=== PATIENT | male | born 1965 | race Caucasian/White ===

== ENCOUNTER 2024-05-17 09:49 | Emergency (ER) | payer OTHER, SELFPAY ==
--- NOTE | ~2024-05-17 | XR_ITS ---
EXAMINATION: XR shoulder RT min 2V DATE: 05/17/2024 10:35 INDICATION: Right shoulder pain. Fall. TECHNIQUE: 4 views of right shoulder were obtained. COMPARISON: None. FINDINGS: Alignment is normal. No fracture. There is severe osteoarthritis of acromioclavicular joint and mild osteoarthritis of glenohumeral joint. IMPRESSION: 1. Polyarticular osteoarthritis. Reviewed, dictated and finalized at location A. ENTER'S HELPER
[2024-05-17 09:58] VITALS: BP 138/93; PULSE 71; RESP 16; TEMP 36.6; O2SAT 100
--- NOTE | 2024-05-17 10:16 | ED_ITS ---
HPI - Fall General Chief Complaint: Fall Stated Complaint: FALL Time Seen by Provider: 05/17/24 10:16 Source: patient, RN notes reviewed and old records reviewed Mode of arrival: ambulatory Limitations: no limitations History of Present Illness HPI Narrative: 58-year-old male presents to the [facility] with complaints right shoulder pain after he slipped on ice and fell yesterday about 6:00 p.m.. Reports decreased range of motion, tenderness to the anterior portion of the right shoulder. Did not hit head. No loss of consciousness. No midline tenderness. Has full range of motion of the elbow and the wrist. 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 Had taken his 's leftover hydrocodone as well as 1 ibuprofen Onset (ago): day(s) (1) Related Data Home Medications ?Medication ?Instructions ?Recorded ?Confirmed ?Last Taken ?Type allopurinol 100 mg tablet mg 05/17/24 Unknown History lisinopril 5 mg tablet mg 05/17/24 Unknown History rosuvastatin 10 mg tablet mg 05/17/24 Unknown History Allergies Allergy/AdvReac Type Severity Reaction Status Date / Time aspirin Allergy Unknown Other Verified 05/17/24 10:04 Review of Systems Review of Systems: All systems reviewed & are unremarkable except as noted in HPI and below Constitutional: Constitutional: Reports no additional constitutional complaints ENT: Reports system reviewed and no additional complaints, except as documented Cardiovascular: Cardiovascular: Reports no additional cardiovascular complaints, Denies chest pain and Denies dyspnea Respiratory: Respiratory: Reports no additional respiratory complaints, Denies chest congestion, Denies cough and Denies dyspnea Musculoskeletal: Musculoskeletal: Reports as per HPI and Reports arthralgias (Right shoulder) Integumentary/Breasts: Skin/Breast: Reports system reviewed and no additional complaints, except as docu PMFSH Comments At the time of my signature, I reviewed and agree with the nursing past medical, surgical, social, and family history. There is no relevant family history pertinent to the patient complaint. Exam Const: General: cooperative, healthy appearing, comfortable, no acute distress, well developed, alert and well nourished Nutritional Appearance: well nourished Orientation/consciousness: patient oriented x3 Limitations: no limitations HENMT: Head: normal to inspection Eyes: General: appearance normal, both eyes and all related structures Alignment and Position: alignment normal Neck: Neck: normal visual inspection, full ROM, no lymphadenopathy and no meningeal signs Chest: Chest palpation & inspection: normal inspection of the chest Resp: Effort & Inspection: normal respiratory effort and able to speak in complete sentences Auscultation: clear to auscultation bilaterally, no crackles, no rales, no rhonchi and no wheezes Cardio: Rate: regular rate Back/Spine/Pelvis: Back: no CVA tenderness and No back tenderness Cervical Spine: normal cervical lordosis and No Cervical spine tenderness Thoracic/Lumbar Spine: No thoracic spinal tenderness and No lumbar spinal tenderness Skin: General skin exam: normal color and no rashes or lesions noted Neuro: General: patient oriented x3, gait normal, moves all extremities and no meningeal signs Cognition (Neuro): normal cognition Speech: normal speech Gait exam (Neuro): Normal gait present Extrem: General: normal to inspection, full ROM, capillary refill normal and normal gait Right upper extremity: shoulder/upper arm tenderness (Anterior AC joint) and abnormal ROM pain with active ROM (Above 90? lateral and anterior) in extension; no swelling, elbow/forearm normal to inspection, wrist normal to inspection and Extremity exam: right hand normal to inspection and neuromotor exam normal wrist extension normal, thumb opposition normal, thumb IP flexion normal, thumb ADduction normal and fingers 2-5 ABduction normal Psych: Appearance: grossly normal and well kempt Mental Status: mental status grossly normal Speech and movement: Normal speech and movement present and Clear speech present Affect: normal affect Attitude: cooperative Course Course Level of Care: Express Care Visit Vital Signs Vital signs: Vital Signs Temperature 97.9 F 05/17/24 09:58 Pulse Rate 71 05/17/24 09:58 Respiratory Rate 16 05/17/24 09:58 Blood Pressure 138/93 H 05/17/24 09:58 Pulse Oximetry 100 05/17/24 09:58 Oxygen Delivery Room Air 05/17/24 09:58 Temperature 97.9 F 05/17/24 09:58 Pulse Rate 71 05/17/24 09:58 Respiratory Rate 16 05/17/24 09:58 Blood Pressure 138/93 H 05/17/24 09:58 Pulse Oximetry 100 05/17/24 09:58 Oxygen Delivery Room Air 05/17/24 09:58 Reviewed MDM - Fall MDM Narrative Medical decision making narrative: Patient sitting comfortably in exam room. Stable. Patient distress. Patient presents with right shoulder pain post slip and fall. X-ray negative Patient appropriate for outpatient treatment with close follow-up Discharge instructions reviewed with patient, as well as provided in writing per nursing staff. The instructions also include specific and strict return/GO TO THE ER as well as f/u information. All questions have been answered, and the patient deny any further questions with discharge and discharge plan. Some parts of this dictation were generated by voice recognition software and may contain typographical and/or grammatical inaccuracies. Differential Diagnosis Differential diagnosis: Likely other (Shoulder fracture, humeral fracture, humeral sprain, contusion, ligament injury) Imaging Data Radiologist's impression: EXAMINATION: XR shoulder RT min 2V DATE: 05/17/2024 10:35 INDICATION: Right shoulder pain. Fall. TECHNIQUE: 4 views of right shoulder were obtained. COMPARISON: None. FINDINGS: Alignment is normal. No fracture. There is severe osteoarthritis of acromioclavicular joint and mild osteoarthritis of glenohumeral joint. IMPRESSION: 1. Polyarticular osteoarthritis. Critical Care Time Critical Care Time Critical Care Time: No Discharge Plan Discharge Clinical Impression: Polyarticular osteoarthritis Acute shoulder pain Qualifiers: Laterality: right Qualified Code(s): M25.511 - Pain in right shoulder Fall Qualifiers: Encounter type: initial encounter Qualified Code(s): W19.XXXA - Unspecified fall, initial encounter Patient Disposition: Home, Self-Care Condition: Stable Instructions: Antibiotic Form, Osteoarthritis (ED), Shoulder Pain (ED) Additional Instructions: Your Xray did not show a fracture. Ice should be applied to help reduce swelling. It can be used for 20 to 30 minutes, every 2-3 hours while awake. Do not apply ice directly to your skin. You can alternate ibuprofen 600mg and Tylenol 650mg every 4 hours as needed for pain Back open can help with the muscle discomfort. Do not drive or operate heavy machinery well taking this medication. Please schedule a follow-up visit with your personal physician for further evaluation and treatment within 2 weeks especially if symptoms persist. For new or worsening symptoms go directly to the emergency room Patient Language: Bulgarian Prescriptions: New ibuprofen 600 mg tablet 600 mg PO TID PRN (Reason: fever or pain) Qty: 30 0RF baclofen 10 mg tablet 10 mg PO TID PRN (Reason: muscle pain) Qty: 10 0RF No Action allopurinol 100 mg tablet lisinopril 5 mg tablet rosuvastatin 10 mg tablet Follow-up/Referrals: [facility] [Primary Care Provider] - 1 Week ([facility] follow-up) Stand Alone Forms: Work/School Release IP Time of Disposition: 10:53
== END 2024-05-17 10:58 | disposition home or self-care (01) ==
PROVIDERS: Emergency Provider Nurse Practitioner
DX: M19.011 Primary osteoarthritis, right shoulder (principal); M25.511 Pain in right shoulder; W00.0XXA Fall on same level due to ice and snow, initial encounter; I10 Essential (primary) hypertension; E78.00 Pure hypercholesterolemia, unspecified; M10.9 Gout, unspecified
CPT/HCPCS: 73030; 99203; G0463

== ENCOUNTER 2024-07-10 08:00 | Outpatient (RCR) | payer OTHER, SELFPAY ==
[2024-06-15 08:05] VITALS: BP_SYST 155
--- NOTE | 2024-06-15 09:05 | OPREHPOC ---
Outpatient Therapy Plan of Care This is a Multidisciplinary Plan of Care that may contain components documented by all disciplines (PT, OT, and ST.) PT Problem 1 PT Problem #1 Knowledge Deficit PT Goal 1 Goal / Goal Update *[place] with HEP Target Visit 8 PT Problem 2 PT Problem #2 Pain PT Goal 1 Goal / Goal Update *decrease pain rating to 3/10 at worst, to increase use of dominant UE Target Visit 8 PT Problem 3 PT Problem #3 Impaired Strength PT Goal 1 Goal / Goal Update *increase strength of R shoulder, to improve use of R arm for reaching and home and self care tasks : in standing: R active x 5 reps: 1* flexion to 145' 2* abduction to 145' no pain increase with 3* shoulder flexion to 145' 4* abduction to 145' Target Visit 8
--- NOTE | 2024-06-15 09:05 | PTOPEVAL1 ---
Assessment and note entered by Carolina Littlejohn, PT Evaluation Information Assessment Status Evaluation ICD-10 Condition Codes (PT) Pain in right shoulder M25.511 Onset 05-16-24 Subjective Information fell on ice 05-16-24: went to urgent care next day, x ray negative for fracture pain onset, problems reaching out and overhead going to see ortho specialist this afternoon, [facility] R hand dominant; is currently doing full work duties have always done physical work- some R elbow, wrist,hand pain from repetitive jobs work: [employer]- lifting under 50#- able to adjust machines to lift at waist height; prior to fall, active and no limitations in activity, no pain in R shoulder Reported Pain Level Pain Score Self Report Additional Pain Score Comments pain range in the past week: 1-10/16; pops, crunches in joint, ache, sore; top GH joint and medial humerus; pain is less than initially after falling increase pain: lie on R side, reach up decrease pain: not use arm, naproxen 2x/day, rub shoulder with sleeping: pain with lying on R side, awaken from sleep 2x/night due to pain not using heat, ice- instruct on PRN use Assessment PT Clinical Summary Vega has the diagnosis of R shoulder pain, s/p fall and landing on his R shoulder on ice. Self assessment with Quick DASH rating of 32% limitation in activity level. He is R hand dominant and is continuing to work his full work duties. With the evaluation: decreased active ROM of R shoulder flexion and abduction motions, with weakness all motions; rounded shoulder posture and tenderness over anterior and lateral shoulder. Skilled PT services are indicated for treatment of R shoulder impingement: modalities to decrease pain, therapeutic exercises to improve posture and position of GH joint and shoulder-scapular strength, with education for HEP and posture/body mechanics. Plan of Care Interventions Electrical Stimulation,Hot Pack/Cold Pack,Manual Therapy,Neuro Re-education,Patient/Caregiver Education,Therapeutic Activities,Therapeutic Exercise,Ultrasound,Other Other Interventions taping PT Services Indicated Yes Treatment Frequency and 1-2x/wk for 8 visits Duration These treatments will address the objective and functional deficits as defined above. The patient will be advanced safely and appropriately in order for the patient to progress towards his/her prior level of function. Additional exercises will be introduced and as well as a comprehensive home exercise program upon discharge, if needed, ?to ensure carryover of functional gains achieved in the clinic. This treatment plan has been reviewed and agreement upon by the patient.
[2024-07-10 08:00] VITALS: BP_SYST 140
--- NOTE | 2024-07-10 08:41 | PTOPDC ---
Assessment and note entered by Carolina Littlejohn, PT Assessment Status Discharge ICD-10 Condition Codes (PT) Pain in right shoulder M25.511 Onset 05-16-24 Subjective Information going to have surgery on shoulder 07-16-24; have been trying to rest my shoulder and not use my R arm. Reported Pain Level Pain Score Self Report Additional Pain Score Comments pain range to 1-7/10; ache and sharp pain at times increase pain: use of R arm, push hand down into front pants pocket; decrease pain: rest, over the counter meds; have home stim unit, not used yet Assessment PT Clinical Summary Vega has received 8 PT sessions. With today's reassessment: pain range of 1-7/10; self assessment with Quick DASH rating of 39%; Education completed for HEP. ROM of R shoulder: active/passive: flexion 95'/ 150'; abduction 110'/ 140'; IR- reach behind back, fingers to distal scapula; ER- reach to back of head, fingers to cervical spine. Most pain increase with flexion. The goals were partially met. Discharge PT. He is scheduled to have surgery next week. Plan of Care PT Services Indicated No
== END 2024-07-10 11:02 | disposition home or self-care (01) ==
LOC: ANHPT 08:00
PROVIDERS: PCP Physician Assistant; Visit Provider Physician Assistant
DX: M25.511 Pain in right shoulder (principal)
CPT/HCPCS: 97014; 97110; 97140; 97161; 97530; G0283

== ENCOUNTER 2024-07-10 09:05 | Outpatient (CLI) | payer OTHER, SELFPAY ==
[2024-07-10 11:01] LABS: Basophils Absolute Auto 0.1 K/mm3 (0.0-0.1); Basophils Percent Auto 1.2 % (0.2-1.2); Eosinophils Absolute Auto 0.5 K/mm3 (0-0.3); Eosinophils Percent Auto 5.6 % (0-4.4); Hematocrit 44.1 % (42.0-52.0); Immature Granulocyte Absolute 0.02 K/mm3 (0.00-0.031); Immature Granulocyte Percent A 0.2 % (0-0.5); Lymphocytes Absolute Auto 2.53 K/mm3 (0.9-3.2); Lymphocytes Percent Auto 31.4 % (18.3-44.2); Mean Corpuscular Hemoglobin 31.3 pg (26-34); Mean Corpuscular Volume 92.1 fl (80-100); Mean Platelet Volume 10.1 fl (7.4-10.4); Monocytes Absolute Auto 0.5 K/mm3 (0.1-0.6); Monocytes Percent Auto 5.6 % (2.6-8.5); Neutrophils Absolute Auto 4.5 K/mm3 (1.3-6.7); Platelet Count Result 227 k/mm3 (150-375); Red Blood Count 4.79 M/mm3 (4.6-6.20); Red Cell Distribution Width 12.8 % (11.5-14.5); White Blood Count 8.1 K/mm3 (4.5-10.0)
[2024-07-10 11:27] LABS: Alanine Aminotransferase 30 U/L (6-50); Albumin Level 4.9 g/dL (3.5-5.1); Alkaline Phosphatase 43 U/L (38-126); Anion Gap 14 mmol/L (4-12); Aspartate Amino Transferase 33 U/L (17-59); Bilirubin,Total 0.8 mg/dL (0.2-1.3); Blood Urea Nitrogen 19 mg/dL (9-20); Carbon Dioxide 25 mmol/L (22-30); Chloride 101 mmol/L (98-107); Estimated Glomerular Filt Rate > 60; Glucose 106 mg/dL (65-110); Potassium 4.4 mmol/L (3.4-5.0); Sodium 140 mmol/L (137-145)
== END 2024-07-10 09:06 | disposition home or self-care (01) ==
PROVIDERS: PCP Physician Assistant; Visit Provider Physician Assistant
DX: Z01.818 Encounter for other preprocedural examination (principal)
CPT/HCPCS: 36415; 80053; 85025; 93005

== ENCOUNTER 2024-11-12 10:00 | Outpatient (RCR) | payer OTHER, SELFPAY ==
--- NOTE | 2024-08-16 12:59 | OPREHPOC ---
Outpatient Therapy Plan of Care This is a Multidisciplinary Plan of Care that may contain components documented by all disciplines (PT, OT, and ST.) PT Problem 1 PT Problem #1 Knowledge Deficit PT Goal 1 Goal / Goal Update [place] with HEP Target Visit 4 PT Goal 2 Goal / Goal Update 1. Report no pain greater than 2/10 for 2 consecutive weeks 2. Discharge use of sling 3. Progress to shoulder strengthening per protocol Target Visit 4 PT Problem 2 PT Problem #2 Impaired Range of Motion PT Goal 1 Goal / Goal Update 1. Improve R shoulder flexion ROM to 170 degrees passively 2. Improve R shoulder external rotation ROM to 85 degrees passively 3. Improve R shoulder abduction to 90 to achieve proper functional rotation testing of internal and external rotation Target Visit 10 PT Problem 3 PT Problem #3 Impaired Strength PT Goal 1 Goal / Goal Update 1. Improve R shoulder external rotation strength to 4+/5 to improve shoulder stabilization 2. Improve R shoulder flexion strength to 4+/5 to improve active reaching and object Target Visit 10
--- NOTE | 2024-08-16 12:59 | PTOPEVAL1 ---
Assessment and note entered by Americo Tim, PT Evaluation Information Assessment Status Evaluation Diagnosis Post operative R shoulder rotator cuff repair ICD-10 Condition Codes (PT) Pain in right shoulder M25.511 Onset 07/09/24 Subjective Information Reports that he ahs been losing some sleep the last couple of weeks. He has been sleeping in the bed propped up with pillows. Reports that he still is around a 3 in pain at rest. Currently taking Oxycodone for pain regimented at 5-6 per day. Reports that he has been doing some elbow and wrist motion and occasional pendulums. Denies any radicular symptoms. Mostly has a dull ache into shoulder. Reported Pain Level Pain Score 3: Self Report Assessment PT Clinical Summary Patient presents with signs and symptoms consistent with post operative rotator cuff. Demonstrates a lot of ROM loss and guarding this date. Patient will benefit form skilled therapy as we progress through protocol for cheondoism of shoulder motion, strength, and functional capacity . ROM needs to be early focus. Plan of Care Interventions Electrical Stimulation,Hot Pack/Cold Pack,Manual Therapy,Neuro Re-education,Therapeutic Activities, Therapeutic Exercise PT Services Indicated Yes Treatment Frequency and 2x/week for 10 visits Duration These treatments will address the objective and functional deficits as defined above. The patient will be advanced safely and appropriately in order for the patient to progress towards his/her prior level of function. Additional exercises will be introduced and as well as a comprehensive home exercise program upon discharge, if needed, ?to ensure carryover of functional gains achieved in the clinic. This treatment plan has been reviewed and agreement upon by the patient.
--- NOTE | 2024-08-21 10:33 | PCPTNOTE ---
Request protocol clarification from PT. ESTRELLA
--- NOTE | 2024-08-21 13:27 | PCPTNOTE ---
Left mssg with MD office 13:20 requesting RTC Repair protocol for Vega Romero. AKS
--- NOTE | 2024-08-30 15:16 | PCPTNOTE ---
Left mssg with Dr. Angela azul Erica for a current RTC protocol. Currently in ing. week #8. AKS
--- NOTE | 2024-09-04 09:33 | PCPTNOTE ---
Spoke with Erica from MD office, requesting updated protocol. Pt is currently in week # 9. DELORES
--- NOTE | 2024-09-13 12:59 | OPREHPOC ---
Outpatient Therapy Plan of Care This is a Multidisciplinary Plan of Care that may contain components documented by all disciplines (PT, OT, and ST.) PT Problem 1 PT Problem #1 Knowledge Deficit PT Goal 1 Goal / Goal Update [place] with HEP Target Visit 4 Progress Met PT Goal 2 Goal / Goal Update 1. Report no pain greater than 2/10 for 2 consecutive weeks 2. Discharge use of sling 3. Progress to shoulder strengthening per protocol Target Visit 4 Progress Met PT Problem 2 PT Problem #2 Impaired Range of Motion PT Goal 1 Goal / Goal Update 1. Improve R shoulder flexion ROM to 170 degrees passively 2. Improve R shoulder external rotation ROM to 85 degrees passively 3. Improve R shoulder abduction to 90 to achieve proper functional rotation testing of internal and external rotation - Met 09/13/24: 1. Improved but lacking 2. Improved but lacking Target Visit 10 Progress Partially Met PT Problem 3 PT Problem #3 Impaired Strength PT Goal 1 Goal / Goal Update 1. Improve R shoulder external rotation strength to 4+/5 to improve shoulder stabilization 2. Improve R shoulder flexion strength to 4+/5 to improve active reaching and object 09/13/24: Strengthening has been initiated. Continues to lack sufficient strength for full active arc motion Target Visit 10 Progress Partially Met
--- NOTE | 2024-09-13 12:59 | PTOPPROG ---
Assessment and note entered by Americo Tim, PT Evaluation Information Assessment Status Progress Diagnosis Post operative R shoulder rotator cuff repair ICD-10 Condition Codes (PT) Pain in right shoulder M25.511 Onset 07/09/24 Subjective Information Reports that overall he feels he is doing well. Still feels tight and sore at times especially with wall walking and overhead activity. He purchased a randolph to work with at home and he has been using those consistently. Reports that overall he is sleeping well, but cannot lay on his sides. Understands that he needs to continue to work on shoulder motion. Assessment PT Clinical Summary Patient has made significant progress to this point in therapy. He continues to show stiffness in shoulder with lacking of full functional mobility. We have initiated strengthening and weakness of shoulder continues to be prevalent, however ROM still is needed as a continued forces to ensure care home functional recovery. Patient will continue to benefit from skilled therapy to address these deficits. Plan of Care Interventions Electrical Stimulation,Hot Pack/Cold Pack,Manual Therapy,Neuro Re-education,Therapeutic Activities, Therapeutic Exercise PT Services Indicated Yes Treatment Frequency and 2x/week for 8 visits Duration These treatments will address the objective and functional deficits as defined above. The patient will be advanced safely and appropriately in order for the patient to progress towards his/her prior level of function. Additional exercises will be introduced and as well as a comprehensive home exercise program upon discharge, if needed, ?to ensure carryover of functional gains achieved in the clinic. This treatment plan has been reviewed and agreement upon by the patient.
--- NOTE | 2024-10-15 12:42 | OPREHPOC ---
Outpatient Therapy Plan of Care This is a Multidisciplinary Plan of Care that may contain components documented by all disciplines (PT, OT, and ST.) PT Problem 1 PT Problem #1 Knowledge Deficit PT Goal 1 Goal / Goal Update [place] with HEP Target Visit 4 Progress Met PT Goal 2 Goal / Goal Update 1. Report no pain greater than 2/10 for 2 consecutive weeks 2. Discharge use of sling 3. Progress to shoulder strengthening per protocol Target Visit 4 Progress Met PT Problem 2 PT Problem #2 Impaired Range of Motion PT Goal 1 Goal / Goal Update 1. Improve R shoulder flexion ROM to 170 degrees passively 2. Improve R shoulder external rotation ROM to 85 degrees passively 3. Improve R shoulder abduction to 90 to achieve proper functional rotation testing of internal and external rotation - Met 09/13/24: 1. Improved but lacking 2. Improved but lacking Target Visit 10 Progress Met PT Problem 3 PT Problem #3 Impaired Strength PT Goal 1 Goal / Goal Update 1. Improve R shoulder external rotation strength to 4+/5 to improve shoulder stabilization 2. Improve R shoulder flexion strength to 4+/5 to improve active reaching and object 10/15/24: Showing improved strength but still lacking functional necessity Target Visit 26 Progress Partially Met
--- NOTE | 2024-10-15 12:42 | PTOPPROG ---
Assessment and note entered by Americo Tim, PT Evaluation Information Assessment Status Progress Diagnosis Post operative R shoulder rotator cuff repair ICD-10 Condition Codes (PT) Pain in right shoulder M25.511 Onset 07/09/24 Subjective Information Reports that overall pain is controlled and he is making progress. He is still having a lot of trouble with any overhead work at this time. He does not feel he has efficient strength to do all he needs to right now. Has just recently been pushing strengthening. Assessment PT Clinical Summary Patient has seen improvement in shoulder ROM to near full capacity compared to uninvolved. Patient continues to show consistent weakness with overhead activity and shoulder stabilization. Clicking noted with rotational activity indicating continued shoulder instability. Patient will continue to benefit from skilled therapy to improve gross shoulder strength and functional shoulder conditioning for work and self care activity. Plan of Care Interventions Electrical Stimulation,Hot Pack/Cold Pack,Manual Therapy,Neuro Re-education,Therapeutic Activities, Therapeutic Exercise PT Services Indicated Yes Treatment Frequency and 2x/week for 8 visits Duration These treatments will address the objective and functional deficits as defined above. The patient will be advanced safely and appropriately in order for the patient to progress towards his/her prior level of function. Additional exercises will be introduced and as well as a comprehensive home exercise program upon discharge, if needed, ?to ensure carryover of functional gains achieved in the clinic. This treatment plan has been reviewed and agreement upon by the patient.
--- NOTE | 2024-11-12 14:44 | OPREHPOC ---
Outpatient Therapy Plan of Care This is a Multidisciplinary Plan of Care that may contain components documented by all disciplines (PT, OT, and ST.) PT Problem 1 PT Problem #1 Knowledge Deficit PT Goal 1 Goal / Goal Update [place] with HEP Target Visit 4 Progress Met PT Goal 2 Goal / Goal Update 1. Report no pain greater than 2/10 for 2 consecutive weeks 2. Discharge use of sling 3. Progress to shoulder strengthening per protocol Target Visit 4 Progress Met PT Problem 2 PT Problem #2 Impaired Range of Motion PT Goal 1 Goal / Goal Update 1. Improve R shoulder flexion ROM to 170 degrees passively 2. Improve R shoulder external rotation ROM to 85 degrees passively 3. Improve R shoulder abduction to 90 to achieve proper functional rotation testing of internal and external rotation - Met 09/13/24: 1. Improved but lacking 2. Improved but lacking Target Visit 10 Progress Met PT Problem 3 PT Problem #3 Impaired Strength PT Goal 1 Goal / Goal Update 1. Improve R shoulder external rotation strength to 4+/5 to improve shoulder stabilization 2. Improve R shoulder flexion strength to 4+/5 to improve active reaching and object 11/12/24: Showing improved strength but still lacking functional necessity. Needs continued strengthening. Target Visit 34 Progress Partially Met
--- NOTE | 2024-11-12 14:44 | PTOPPROG ---
Assessment and note entered by Americo Tim, PT Evaluation Information Assessment Status Progress Diagnosis Post operative R shoulder rotator cuff repair ICD-10 Condition Codes (PT) Pain in right shoulder M25.511 Onset 07/09/24 Subjective Information States that motion is feeling much better. Still feels weak and unsure how he will do in a return to work situation. He follows up with MD on to discuss his pending 11/20/24 return to work date. Pain has been controlled with activity but he is still achy at rest and with repetitive activity. His biggest concern at this time would be with lifting objects from a low location because his machine is able to get to chest level when picking. Concerned about going back to work if he has no restrictions while he continues to recover at fear of reinjury. Assessment PT Clinical Summary Patient has shown improvement in ROM meeting likely maximal functional availability. He still shows weakness of the shoulder in shoulder level and above. I feel that he is able to do most things at chest level and below but he does not show ability to produce any significant lifting overhead at this time as evidenced by box lifting results. Needs continued strengthening to address this. Plan of Care Interventions Electrical Stimulation,Hot Pack/Cold Pack,Manual Therapy,Neuro Re-education,Therapeutic Activities, Therapeutic Exercise PT Services Indicated Yes Treatment Frequency and 2x/week for 8 visits emphasizing functional Duration strengthening. These treatments will address the objective and functional deficits as defined above. The patient will be advanced safely and appropriately in order for the patient to progress towards his/her prior level of function. Additional exercises will be introduced and as well as a comprehensive home exercise program upon discharge, if needed, ?to ensure carryover of functional gains achieved in the clinic. This treatment plan has been reviewed and agreement upon by the patient.
== END 2024-11-14 23:59 | disposition home or self-care (01) ==
LOC: ANHPT 10:00
PROVIDERS: PCP Physician Assistant
DX: M75.121 Complete rotator cuff tear or rupture of right shoulder, not specified as traumatic (principal)
CPT/HCPCS: 97110; 97112; 97140; 97161; 97530

== ENCOUNTER 2025-02-21 09:00 | Outpatient (RCR) | payer OTHER, SELFPAY ==
--- NOTE | 2024-12-27 10:06 | PTOPPROG ---
Assessment and note entered by Americo Tim, PT Evaluation Information Assessment Status Progress Diagnosis R post operative rotator cuff repair ICD-10 Condition Codes (PT) Pain in right shoulder M25.511 Subjective Information Patient reports that overall he feels his motion is significantly improved at this time. He has follow up with MD scheduled on 01/18/25. 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 Feels he is still weak but is aware of substitutions to continue to work on moving forward as he emphasizes half-way strengthening of shoulder capsule. Assessment PT Clinical Summary Patient has seen significant progress with shoulder ROM and strengthening at this time. Currently needs continued repetition with progression in resistance to improve functional and work related strength. He shows improved capacity for activity but likely will continue to need time to improve functional strength of dominant shoulder. 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 Plan of Care PT Services Indicated Yes Treatment Frequency and 1-2x/week for 6 visits Duration These treatments will address the objective and functional deficits as defined above. The patient will be advanced safely and appropriately in order for the patient to progress towards his/her prior level of function. Additional exercises will be introduced and as well as a comprehensive home exercise program upon discharge, if needed, ?to ensure carryover of functional gains achieved in the clinic. This treatment plan has been reviewed and agreement upon by the patient.
--- NOTE | 2025-02-21 09:57 | PTOPDC ---
Assessment and note entered by Americo Tim, PT Evaluation Information Assessment Status Discharge Diagnosis R post operative rotator cuff repair ICD-10 Condition Codes (PT) Pain in right shoulder M25.511 Subjective Information Patient reports that overall he feels he is doing well. ROM feels good. He is still on no overhead lifting activity. Feels with a bit more time dedicated to strengthening. Reported Pain Level Pain Score 1: Self Report Assessment PT Clinical Summary Patient overall has seen significant improvement with full functional ROM noted. He has seen some strengthening improvement but still needs time and consistency with this. Patient at this point is suitable for discharge to independent strengthening program as part of HEP. Plan of Care PT Services Indicated Yes
== END 2025-02-21 11:46 | disposition home or self-care (01) ==
LOC: ANHPT 09:00
PROVIDERS: PCP Physician Assistant
DX: Z48.89 Encounter for other specified surgical aftercare (principal); M75.121 Complete rotator cuff tear or rupture of right shoulder, not specified as traumatic
CPT/HCPCS: 97110; 97140; 97530